=== PATIENT | male | born 1935 | race Caucasian/White ===

== ENCOUNTER 2017-05-28 10:44 | Inpatient (IN) | payer MEDICARE ==
[2017-05-28] MEDS ORDERED: Ondansetron HCl/PF 4 MG/2 ML Vial ONE (10:58)
[2017-05-28 11:36] LABS: ALT (SGPT) 23 U/L (8-55); AST (SGOT) 23 U/L (5-34); Alkaline Phosphatase 85 U/L (40-150); Anion Gap 16 mmol/L (10-20); BUN (Urea Nitrogen) 27 mg/dL (8.4-25.7); Bilirubin, Total 1.1 mg/dL (0.2-1.2); CK (CPK) 85 U/L (30-200); Calc. Creatinine Clearance 0 mL/min (70-130); Calcium 11.9 mg/dL (7.8-10.44); Carbon Dioxide 30 mmol/L (23-31); Chloride 99 mmol/L (98-107); Estimated GFR-MDRD 46; Globulin 3.4 g/dL (2.4-3.5); Lipase 28 U/L (8-78); Protein, Total 8.3 g/dL (5.8-8.1)
[2017-05-28 11:40] LABS: Troponin I 0.011 ng/mL (< 0.028)
[2017-05-28 11:42] LABS: #Lymphocytes 0.8 thou/uL (1.20-3.40); #Monocytes 0.8 thou/uL (0.11-0.59); #Neutrophils 8.8 thou/uL (1.40-6.50); %Basophils 0.1 % (0.0-1.0); %Eosinophils 0.4 % (0.0-10.0); %Lymphocytes 7.4 % (21.0-51.0); %Monocytes 7.2 % (0.0-10.0); Mean Platelet Volume 6.9 fL (7.4-10.4); Red Blood Cell (RBC) Count 5.92 mill/uL (4.70-6.10); White Blood Cell (WBC) Count 10.4 thou/uL (4.8-10.8)
[2017-05-28 12:02] LABS: Lactic Acid - Sepsis 1.7 mmol/L (0.5-2.2)
[2017-05-28 12:06] LABS: Bilirubin Small (Negative); Blood, Urine Negative (Negative); Glucose, Urine (Dipstick) Negative (Negative); Ketone, Urine Trace mg/dL (Negative); Nitrite Negative (Negative); Protein, Urine (Dipstick) 100 mg/dL (Neg-Trace); Urobilinogen 0.2 mg/dL (0.2-1.0)
[2017-05-28 12:07] LABS: Bacteria/HPF None Seen HPF (None Seen)
[2017-05-28 12:21] LABS: Hyaline Casts/LPF 7-10 HYALINE CAST LPF (0-3 Hyaline); RBC/HPF None Seen HPF (0-3)
[2017-05-28] MEDS ORDERED: Lidocaine Viscous Sol 2% 15 ml UD Cup ONE (13:43)
[2017-05-28] MEDS ORDERED: Benzocaine 20% Spray 60 ML CAN ONE (13:43)
--- NOTE | 2017-05-28 14:47 | RAD ---
CHEST 1 VIEW: Date: 05/28/17 HISTORY: Emergency exam. Vomiting. Chest pain. COMPARISON: None. FINDINGS: Lung bases are clear. No pneumothorax or effusion. Cardiac silhouette and mediastinal contours are w ithin normal limits. IMPRESSION: No acute cardiopulmonary process. POS: [facility]
--- NOTE | 2017-05-28 14:50 | RAD ---
ABDOMEN 1 VIEW: Date: 05/28/17 HISTORY: Emergency exam. COMPARISON: CT abdomen and pelvis dated 05/28/17. FINDINGS: Enteric tube is in place, tip at gastric body. Lung bases are clear. There are mildly distended loops of bowel in the abdomen, predominantly small bowel. There is contra st within the renal collecting systems. IMPRESSION: 1. Enteric tube tip gastric body with side port below GE junction. 2. Distended loops of bowel suggestive of obstruction. POS: [facility]
--- NOTE | 2017-05-28 15:20 | CT ---
CT ABDOMEN WITH CONTRAST CT PELVIS WITH CONTRAST: DATE: 05/28/17 TIME: 1259 HOURS HISTORY: 82-year-old male with nausea and emesis, with generalized abdominal pain. TECHNIQUE: IV injection of iodinated contrast media: Isovue. Oral contrast media: Not administered. COMPARISON: None. FINDINGS: There are dilated, fluid-filled small bowel loops throughout most of the intestine. A caliber of a t ypical loop of small intestine is approximately 3.5 cm. There is a segment of ileum in the right low er quadrant that appears to be severely narrowed (axial images 69 and 70 of 119, series 2; coronal i mages 41-46 of 152, series 601) that may represent the point of obstruction, although there is fluid in the small intestine distal to this in the terminal ileum. There is also an ill-defined patchy re gion of increased attenuation, apparently representing enhancement, at the region of the ileocecal v alve. The appendix is normal. There is also fluid throughout the ascending colon, up to the hepatic flexure. There is no fluid in the lumen of the rest of the colon. There is a large number of diverti cula throughout the descending colon and sigmoid colon. There is mild fat stranding around the sigmo id colon (best appreciated on coronal image 65 of 152). There is a small amount of free fluid in the dependent portion of the pelvic cavity. The prostate gl and is very enlarged, and has moderately heterogeneous attenuation, including low attenuation. It busby periorly displaces the bladder base mildly . The urinary bladder is not significantly distended. Ath erosclerotic calcification of abdominal aorta. Chronic, calcified aortic dissection involving the sh ort segment of the infrarenal abdominal aorta (axial image 61 of 119, series 2). No abdominal aortic aneurysm. No hydronephrosis. Small, 1 cm, hypodense lesion at posterior aspect right renal upper po le cortex, too small to characterize, but statistically most likely to be a cyst. A few small hypode nsities in the order of 1 and 1.5 cm in size, in the caudate lobe and deep, central portions of left lobe of liver, too small to characterize, may represent cysts. Rest of the liver is unremarkable. N o splenomegaly. Normal pancreas and adrenals. Tiny pericardial effusion. No pneumoperitoneum. IMPRESSION: 1. Evidence for small bowel obstruction, probably partial or early, involving the distal ileum. 2. A short distance distal to this point of obstruction, there is a region of enhancement at the il eocecal valve, which may or may not represent a second point of partial obstruction by neoplastic tu mor. 3. Extensive descending and sigmoid colonic diverticulosis. 4. Questionable mild proximal sigmoid colonic diverticulitis. 5. Very enlarged prostate gland. 6. Small amount of free fluid in the pelvis. BARBARA POS: [facility]
--- NOTE | 2017-05-28 16:20 | HP ---
PRIMARY CARE PHYSICIAN: Dr. Prashant Maria. REASON FOR ADMISSION: Small-bowel obstruction. HISTORY OF PRESENT ILLNESS: An 82-year-old male with a history of benign enlargement of prostate, h ypothyroidism, dyslipidemia, and gastroesophageal reflux disease who came to Emergency Room for eval uation of nausea, vomiting, abdominal pain. Patient reports that on afternoon, he went to [employer] and ate lunch there. He was doing g ood in the evening time and during night time on that day, but Tuesday morning he was feeling bloated in his stomach. He was feeling abdominal distention. He was having a lot of abdominal pain and he had large amount of vomiting yesterday which was brown bile without any blood. After vomiting, his abdominal pain was better and his distention improved. He also had 5 times liquidy diarrhea withou t any pus or blood. On Tuesday entire day, he was not feeling good and this morning he was not passi ng gas and he was still having crampy abdominal pain and that is why he decided to come to the emerg ency room for evaluation. He denies any hematochezia. He denies any melena. He denies any fever o r chills. He denies any UTI symptoms, though he has history of benign enlargement. So he has to wa ke up more frequently during night time, but he denies any dysuria, hematuria. He denies any furthe r vomiting today. In the emergency room, patient had CT of the abdomen and pelvis which showed evid ence of partial small-bowel obstruction. The patient also had diverticulosis. In the emergency [facility], Dr. Fenton was notified and patient required NG tube with low intermittent suction. At this point , we are admitting this patient in the hospital for further evaluation and treatment. This patient reports that he has history of hernia repair in the past. He never had this type of problem in the past. REVIEW OF SYSTEMS: The following complete review of systems was negative, unless otherwise mentione d in the HPI or below: Constitutional: Weight loss or gain, ability to conduct usual activities. Skin: Rash, itching. Eyes: Double vision, pain. ENT/Mouth: Nose bleeding, neck stiffness, pain, tenderness. Cardiovascular: Palpitations, dyspnea on exertion, orthopnea. Respiratory: Shortness of breath, wheezing, cough, hemoptysis, fever or night sweats. Gastrointestinal: Poor appetite, abdominal pain, heartburn, nausea, vomiting, constipation, or diar crystal. Genitourinary: Urgency, frequency, dysuria, nocturia. Musculoskeletal: Pain, swelling. Neurologic/Psychiatric: Anxiety, depression. Allergy/Immunologic: Skin rash, bleeding tendency. Please see my HPI for pertinent positive and negative. All other review of systems reviewed and neg ative except as mentioned in the HPI. PAST MEDICAL HISTORY: Benign enlargement of prostate, hypothyroidism, hiatal hernia, history of div erticulitis x2, and dyslipidemia. PAST SURGICAL HISTORY: Bilateral inguinal hernia repair by Dr. Fenton and bilateral cataract surgery . PAST PSYCHIATRIC HISTORY: Reviewed and negative. SOCIAL HISTORY: Patient drinks beer socially. He denies any smoking. He denies any illicit drug a buse. FAMILY HISTORY: No strong family history of premature coronary artery disease, stroke or cancer. ALLERGIES: No known drug allergies. CURRENT HOME MEDICATIONS: Zocor 40 mg p.o. at bedtime, omeprazole 20 mg p.o. daily, levothyroxine 7 5 mcg p.o. daily, and Flomax 0.4 mg p.o. daily. EMERGENCY ROOM COURSE: Patient required NG tube with low intermittent suction, Zofran 4 mg, and IV fluid is given. PHYSICAL EXAMINATION: VITAL SIGNS: On arrival, blood pressure 134/79, pulse 101, respiratory rate 16, temperature 97.4, s aturation 94% on room air, weight 83.4 kilograms. GENERAL: Patient is currently alert, awake, no obvious acute distress. HEAD: Normocephalic, atraumatic. EYES: Pupils round, reactive to light. Extraocular muscles intact. ENT: Oropharynx within normal limits. NG tube in place. Dry mucous membranes. No pharyngeal eryt eric, no exudate. NECK: Supple. Range of motion is normal. No meningeal signs of irritation. LUNGS: Clear to auscultation without any rhonchi or rales. CARDIAC: S1, S2 regular. No murmur, no gallop, no rub. ABDOMEN: Mild distention noted. Unable to hear bowel sounds, mild discomfort on deep palpation, bu t no organomegaly, no mass, no peritoneal signs, no rebound, no suprapubic discomfort. BACK: Examination unremarkable, no CVA tenderness. EXTREMITIES: Upper extremity passive movements of all joints are normal. Lower extremity, no edema . Good peripheral pulsation. SKIN: No skin rash. HEMATOLOGICAL SYSTEM: No lymphadenopathy. PSYCHIATRIC: Normal affect. NEUROLOGIC: Nonfocal examination. The patient moves all 4 limbs. Plantar bilateral flexor. IMAGING: EKG based on my review reveals normal sinus rhythm, nonspecific ST-T changes. Chest x-ray based on my review, no acute cardiopulmonary process. X-ray abdomen and trach tube within the lj fabiola body distended loops of bowel consistent with obstruction. CT of the abdomen and pelvis consist ent with small-bowel obstruction, short distal to the point of obstruction, extensive descending and sigmoid colonic diverticulosis, enlarged prostate, small amount of free fluid in the pelvis. ASSESSMENT AND PLAN/IMPRESSION: 1. Partial small-bowel obstruction. This patient had large amount of vomiting. After that, he is feeling better. At this point, I am not able to hear any bowel sound. This patient already had NG tube placed in the emergency room. We will continue with low intermittent suction. Will keep him n .p.o. We will hydrate with IV fluids with dextrose with NS with KCl at 125 mL per hour. Will also consult General Surgery for their opinion. At this point, we will try to treat this problem conserv atively with NG tube and low intermittent suction. If this patient's obstruction does not improve, then patient may need a surgical treatment. We will try to perform small bowel x-ray tomorrow. Ano ther possibility on this particular patient is small bowel ileus. 2. Gastroenteritis/food poisoning. This patient ate at [employer] on and subsequently he wa s having bloating, nausea, vomiting, and diarrhea, and current episode could be a part of ileus. At this point, if patient does have further diarrhea, then we will try to do stool for infection kath p, given no leukocytosis at this point and no fever, we will hold on antibiotic therapy. 3. Acute kidney injury. This patient is dehydrated. We will continue with IV fluid and will repea t basic metabolic panel tomorrow. 4. Asymptomatic urinary tract infection. We will send urine culture and depending upon culture res ult, we will start Cipro 400 mg IV b.i.d. 5. Benign enlargement of prostate. We will continue with the Flomax 0.4 mg p.o. at bedtime when pa tessant able to take p.o. 6. Gastroesophageal reflux disease. We will continue with Protonix 40 mg IV daily. 7. Hypothyroidism. When patient able to take p.o., at that time we will resume Synthroid 75 mcg p. o. daily. 8. Dyslipidemia. When patient able to take p.o. intake, at that time we will resume Zocor 40 mg p. o. at bedtime. 9. Deep venous thrombosis prophylaxis, Lovenox 40 mg subcu daily. 10. Gastrointestinal prophylaxis, Protonix 40 mg IV daily. 11. Code status: The patient is FULL CODE. Patient's daughter is surrogate decision maker. Disposition plan based on clinical course. We are expecting patient's stay in hospital more than 2 midnights. Plan of care discussed with the patient and family member in the emergency room.
[2017-05-28] MEDS ORDERED: ISOVUE-370 76%-LOCM 1 ML ONE (16:48)
[2017-05-28] MEDS ORDERED: Ondansetron HCl/PF 4 MG/2 ML Vial IVP PRN ×2 (17:02→17:32)
[2017-05-28] MEDS ORDERED: Ondansetron ODT 4 MG TAB SL PRN (17:02)
[2017-05-28] MEDS ORDERED: Acetaminophen 325 MG TAB PO PRN (17:02)
[2017-05-28] MEDS ORDERED: Artificial Tear Sol 15 ML BOT EA EYE PRN (17:32)
[2017-05-28] MEDS ORDERED: Eucerin (Mineral Oil/Petrolatum,White) 30 gm Jar TOP PRN (17:32)
[2017-05-28] MEDS ORDERED: Ketorolac Tromethamine 30 MG/ML VIAL IVP PRN (17:32)
[2017-05-28] MEDS ORDERED: Sodium Chloride 0.65% Nasal 44 ML BOT EA NARE PRN (17:32)
[2017-05-28 17:35] VITALS: BMI 24.3
[2017-05-28] MEDS: D5 0.9% NS w/ 20 mEq KCl 1,000 ML IV SCH (18:09)
[2017-05-28] MEDS: Sodium Chloride 0.9% 1,000 ML IV SCH ×2 (18:16→23:51)
[2017-05-29] MEDS: D5 0.9% NS w/ 20 mEq KCl 1,000 ML IV SCH ×3 (02:37→17:24)
[2017-05-29 05:52] LABS: #Eosinphils 0.3 thou/uL (0.0-0.7); #Lymphocytes 0.5 thou/uL (1.20-3.40); #Neutrophils 5.9 thou/uL (1.40-6.50); %Basophils 0.5 % (0.0-1.0); %Eosinophils 3.4 % (0.0-10.0); %Monocytes 13.2 % (0.0-10.0); Hematocrit 51.4 % (42.0-52.0); Red Blood Cell (RBC) Count 5.39 mill/uL (4.70-6.10); White Blood Cell (WBC) Count 7.8 thou/uL (4.8-10.8)
[2017-05-29 06:18] LABS: ALT (SGPT) 19 U/L (8-55); AST (SGOT) 20 U/L (5-34); Alkaline Phosphatase 70 U/L (40-150); Anion Gap 9 mmol/L (10-20); BUN (Urea Nitrogen) 28 mg/dL (8.4-25.7); Bilirubin, Total 1.1 mg/dL (0.2-1.2); Calc. Creatinine Clearance 66 mL/min (70-130); Calcium 9.9 mg/dL (7.8-10.44); Carbon Dioxide 27 mmol/L (23-31); Chloride 108 mmol/L (98-107); Estimated GFR-MDRD 69; Globulin 2.8 g/dL (2.4-3.5)
[2017-05-29] MEDS: Pantoprazole 40 MG VIAL IVP SCH (09:21)
[2017-05-29] MEDS: Enoxaparin Sodium 40 MG/0.4 ML SYRINGE SC SCH (09:21)
[2017-05-29] MEDS ORDERED: Chloraseptic Spray 180 ml Bottle PO PRN ×2 (10:22→11:06)
[2017-05-29] MEDS ORDERED: Sodium Chloride 0.9% 1,000 ML IV SCH (10:30)
--- NOTE | 2017-05-29 10:41 | PDOC.PN ---
- Subjective Encounter Start Date: 05/29/17 Encounter Start Time: 08:30 -: old records requested/rev pt is not passing gas, no fever, no abdominal pain - Objective Resuscitation Status: Resuscitation Status FULL:Full Resuscitation MAR Reviewed: Yes Vital Signs & Weight: Vital Signs (12 hours) Temp Pulse Resp BP Pulse Ox 05/29/17 08:59 94 L 05/29/17 04:00 97.8 F 75 16 134/82 98 05/29/17 00:00 98 F 81 16 132/78 95 Weight Weight 184 lb 1.376 oz I&O: 05/28/17 05/29/17 05/30/17 06:59 06:59 06:59 Output Total 325 Balance -325 Result Diagrams: 05/29/17 05:04 05/29/17 05:04 Radiology Reviewed by me: Yes (xray abdomen) Phys Exam - Physical Examination Constitutional: NAD HEENT: PERRLA, moist MMs, sclera anicteric NG tube with LIS Neck: no JVD, supple Respiratory: no wheezing, no rales, no rhonchi Cardiovascular: RRR, no significant murmur, no rub Gastrointestinal: soft, non-tender, no distention Musculoskeletal: no edema, pulses present Neurological: non-focal, normal sensation, moves all 4 limbs Psychiatric: normal affect, A&O x 3 Skin: no rash, normal turgor Dx/Plan (1) Partial small bowel obstruction Status: Acute (2) UTI (urinary tract infection) Status: Acute (3) Diverticulosis of colon Code(s): K57.30 - DVRTCLOS OF LG INT W/O PERFORATION OR ABSCESS W/O BLEEDING Status: Chronic (4) Diverticulitis large intestine Code(s): K57.32 - DVTRCLI OF LG INT W/O PERFORATION OR ABSCESS W/O BLEEDING Status: Suspected Qualifiers: Diverticulitis bleeding: without bleeding Diverticulitis complication: without perforation or abscess Qualified Code(s): K57.32 - Diverticulitis of large intestine without perforation or abscess without bleeding (5) Acute kidney failure Status: Resolved (6) BPH (benign prostatic hyperplasia) Code(s): N40.0 - BENIGN PROSTATIC HYPERPLASIA WITHOUT LOWER URINRY TRACT SYMP Status: Chronic (7) Hypothyroidism Code(s): E03.9 - HYPOTHYROIDISM, UNSPECIFIED Status: Chronic (8) Dyslipidemia Code(s): E78.5 - HYPERLIPIDEMIA, UNSPECIFIED Status: Chronic (9) GERD (gastroesophageal reflux disease) Code(s): K21.9 - GASTRO-ESOPHAGEAL REFLUX DISEASE WITHOUT ESOPHAGITIS Status: Chronic Qualifiers: Esophagitis presence: without esophagitis Qualified Code(s): K21.9 - Gastro -esophageal reflux disease without esophagitis - Plan cont current plan of care, plan discussed w/ family, continue antibiotics * continue NG tube with LIS * general surgery consulted * will do small bowel xray when surgeon ok * continue IVF * continue cipro * follow urine culture * medication reviewed as below * symptomatic treatment * discussed with daughter. Review of Systems - Review of Systems ENT: negative: Ear Pain, Ear Discharge, Nose Pain, Nose Discharge, Nose Congestion, Mouth Pain, Mouth Swelling, Throat Pain, Throat Swelling, Other Respiratory: negative: Cough, Dry, Shortness of Breath, Hemoptysis, SOB with Excertion, Pleuritic Pain, Sputum, Wheezing Cardiovascular: negative: Chest Pain, Palpitations, Orthopnea, Paroxysmal Noc. Dyspnea, Edema, Light Headedness, Other Gastrointestinal: negative: Nausea, Vomiting, Abdominal Pain, Diarrhea, Constipation, Melena, Hematochezia, Other Genitourinary: negative: Dysuria, Frequency, Incontinence, Hematuria, Retention , Other Musculoskeletal: negative: Neck Pain, Shoulder Pain, Arm Pain, Back Pain, Hand Pain, Leg Pain, Foot Pain, Other - Medications/Allergies Allergies/Adverse Reactions: Allergies Allergy/AdvReac Type Severity Reaction Status Date / Time No Known Allergies Allergy Unverified 04/22/14 15:45 Medications: Current Medications Artificial Tears (Tears Renewed 15ml Bottle) 0 drop EA EYE PRN PRN PRN Reason: Dry Eyes Enoxaparin Sodium (Lovenox) 40 mg SC 0900 [facility] Last Admin: 05/29/17 09:21 Dose: 40 mg Hydralazine HCl (Apresoline) 10 mg SLOW IVP Q4H PRN PRN Reason: Systolic BP > 180 Ciprofloxacin/Dextrose 400 mg/ (Device) 200 mls @ 200 mls/hr IVPB 0600,1800 [facility] Last Admin: 05/29/17 05:19 Dose: 200 mls Potassium Chloride/Dextrose/Sod Cl (D5 0.9% Ns W/ 20 Meq Kcl) 1,000 mls @ 125 mls/hr IV .Q8H [facility] Last Admin: 10/01/17 09:32 Dose: 1,000 mls Sodium Chloride (Normal Saline 0.9%) 1,000 mls @ 999 mls/hr IV .Q1H1M [facility] Stop: 05/29/17 11:30 Ketorolac Tromethamine (Toradol) 15 mg IVP Q6H PRN PRN Reason: Pain Stop: 06/02/17 17:33 Mineral Oil/White Petrolatum (Eucerin Cream) 0 gm TOP BIDPRN PRN PRN Reason: Dry Skin Morphine Sulfate (Morphine Sulfate) 2 mg SLOW IVP Q4H PRN PRN Reason: Pain Ondansetron HCl (Zofran) 4 mg IVP Q6H PRN PRN Reason: Nausea/Vomiting Pantoprazole Sodium (Protonix) 40 mg IVP DAILY [facility] Last Admin: 05/29/17 09:21 Dose: 40 mg Phenol (Chloraseptic [place] 180 Ml Bot) 5 ml PO QID PRN PRN Reason: Sore Throat Sodium Chloride ([place] Nasal [place] 0.65%) 0 ml EA NARE QIDPRN PRN PRN Reason: Nasal Congestion Sodium Chloride (Flush - Normal Saline) 10 ml IVF Q12HR [facility] Sodium Chloride (Flush - Normal Saline) 10 ml IVF PRN PRN PRN Reason: Saline Flush
--- NOTE | 2017-05-29 10:41 | CON ---
GENERAL SURGERY CONSULTATION NOTE DATE OF CONSULTATION: 05/29/2017 CHIEF COMPLAINT: Abdominal distention. HISTORY OF PRESENT ILLNESS: An 82-year-old male with a 2-day history of feeling like he had the flu . He then started having nausea, vomiting and diarrhea. He was vomiting brown bile. His last dez l movement was yesterday. He reports his abdomen is becoming progressively more distended. He had a colonoscopy about 3-[address] Finch. He does have a family history of colon cancer in h is brother. PAST MEDICAL HISTORY: Benign prostatic hypertrophy, hypothyroidism, hiatal hernia, hyperlipidemia a nd history of diverticulitis. He was last treated about 8 months ago. PAST SURGICAL HISTORY: He has had bilateral inguinal hernia repair and bilateral cataract surgery. ALLERGIES: No known drug allergies. SOCIAL HISTORY: He drinks alcohol regularly. No tobacco. He is retired. MEDICATIONS: Simvastatin, omeprazole, levothyroxine and tamsulosin. PHYSICAL EXAMINATION: VITAL SIGNS: Temperature 98.7, pulse 75 and blood pressure 134/82. GENERAL: A well-developed, well-nourished male in no apparent distress. HEENT: Unremarkable. LUNGS: Clear. HEART: Regular rate and rhythm. ABDOMEN: Distended, but soft. No significant tenderness. No palpable masses. No hernias. EXTREMITIES: Unremarkable. LABORATORY AND X-RAY FINDINGS: His white count is 7.8, hemoglobin and hematocrit 16 and 51, platele t count 271. Electrolytes are fine, but an elevated glucose of 122. KUB shows distended loops of s mall bowel consistent with obstruction. Chest x-ray negative. CT scan shows inflammation in the si gmoid colon consistent with diverticulitis. There is a questionable mass in the ileocecal valve eamon t is worrisome with a possible secondary site for obstruction and also an area of luminal narrowing in the terminal ileum consistent with a possible early obstruction. ASSESSMENT: Partial small-bowel obstruction with diverticulitis and questionable mass at the ileoce chayo valve. PLAN: IV hydration and NG suction. If not better by tomorrow, small bowel follow through.
--- NOTE | 2017-05-29 11:28 | RAD ---
RADIOGRAPH ABDOMEN 1 VIEW: Date: 05/29/17 Time: 0940 hours HISTORY: 82-year-old male with small bowel obstruction. COMPARISON: 05/28/17 at 1335 hours. FINDINGS: The current radiograph is centered more inferiorly than the previous. NG tube remains. Multiple dila bassam air-filled loops of small bowel are present. Smaller amount of gas in nondilated colon. Prominen t gas in rectum. The previously air-filled stomach is now decompressed. No other interval change. IMPRESSION: 1. Abnormal bowel gas pattern: evidence for partial small bowel obstruction. 2. Interval decompression of the stomach since yesterday. POS: [facility]
[2017-05-30] MEDS: D5 0.9% NS w/ 20 mEq KCl 1,000 ML IV SCH ×3 (02:41→19:27)
[2017-05-30] MEDS: Enoxaparin Sodium 40 MG/0.4 ML SYRINGE SC SCH (08:38)
[2017-05-30] MEDS: Pantoprazole 40 MG VIAL IVP SCH (08:38)
--- NOTE | 2017-05-30 09:49 | RAD ---
AP ABDOMINAL RADIOGRAPH: Date: 05/30/17 HISTORY: Small bowel obstruction. COMPARISON: 05/29/17. FINDINGS: Again noted are multiple dilated air-filled loops of small bowel, unchanged from the prior study. Th ere is paucity of bowel gas in the region of the rectum. However, there is gas seen throughout the r emainder of the colon. Nasogastric tube is partially imaged overlying the medial left upper quadrant . No other interval change. IMPRESSION: Findings again worrisome for partial small bowel obstruction. POS: [facility]
--- NOTE | 2017-05-30 12:18 | PDOC.PN ---
- Subjective Encounter Start Date: 05/30/17 Encounter Start Time: 11:00 Patient seen and examined. No new complaints. No overnight events - Objective Resuscitation Status: Resuscitation Status FULL:Full Resuscitation MAR Reviewed: Yes Vital Signs & Weight: Vital Signs (12 hours) Temp Pulse Resp BP Pulse Ox 05/30/17 08:00 97.8 F 62 12 147/84 H 92 L 05/30/17 05:01 98.8 F 97 16 110/63 97 Weight Weight 184 lb 1.376 oz I&O: 05/29/17 05/30/17 05/31/17 06:59 06:59 06:59 Intake Total 2820 Output Total 325 375 Balance -325 2445 Result Diagrams: 05/29/17 05:04 05/29/17 05:04 Phys Exam - Physical Examination Constitutional: NAD HEENT: PERRLA, moist MMs, sclera anicteric NG tube with LIS Neck: no JVD, supple Respiratory: no wheezing, no rales, no rhonchi Cardiovascular: RRR, no significant murmur, no rub Gastrointestinal: soft, non-tender, no distention Musculoskeletal: no edema, pulses present Neurological: non-focal, normal sensation, moves all 4 limbs Psychiatric: normal affect, A&O x 3 Skin: no rash, normal turgor Dx/Plan (1) Partial small bowel obstruction Status: Acute (2) UTI (urinary tract infection) Status: Acute (3) Diverticulosis of colon Code(s): K57.30 - DVRTCLOS OF LG INT W/O PERFORATION OR ABSCESS W/O BLEEDING Status: Chronic (4) Diverticulitis large intestine Code(s): K57.32 - DVTRCLI OF LG INT W/O PERFORATION OR ABSCESS W/O BLEEDING Status: Suspected Qualifiers: Diverticulitis bleeding: without bleeding Diverticulitis complication: without perforation or abscess Qualified Code(s): K57.32 - Diverticulitis of large intestine without perforation or abscess without bleeding (5) Acute kidney failure Status: Resolved (6) BPH (benign prostatic hyperplasia) Code(s): N40.0 - BENIGN PROSTATIC HYPERPLASIA WITHOUT LOWER URINRY TRACT SYMP Status: Chronic (7) Hypothyroidism Code(s): E03.9 - HYPOTHYROIDISM, UNSPECIFIED Status: Chronic (8) Dyslipidemia Code(s): E78.5 - HYPERLIPIDEMIA, UNSPECIFIED Status: Chronic (9) GERD (gastroesophageal reflux disease) Code(s): K21.9 - GASTRO-ESOPHAGEAL REFLUX DISEASE WITHOUT ESOPHAGITIS Status: Chronic Qualifiers: Esophagitis presence: without esophagitis Qualified Code(s): K21.9 - Gastro -esophageal reflux disease without esophagitis - Plan cont current plan of care, plan discussed w/ family, continue antibiotics * will get small bowl xray today * continue NPO * continue NG tube with LIS * continue cipro * continue IVF * medication reviewed as below * symptomatic treatment.. Review of Systems - Review of Systems ENT: negative: Ear Pain, Ear Discharge, Nose Pain, Nose Discharge, Nose Congestion, Mouth Pain, Mouth Swelling, Throat Pain, Throat Swelling, Other Respiratory: negative: Cough, Dry, Shortness of Breath, Hemoptysis, SOB with Excertion, Pleuritic Pain, Sputum, Wheezing Cardiovascular: negative: Chest Pain, Palpitations, Orthopnea, Paroxysmal Noc. Dyspnea, Edema, Light Headedness, Other Gastrointestinal: negative: Nausea, Vomiting, Abdominal Pain, Diarrhea, Constipation, Melena, Hematochezia, Other Genitourinary: negative: Dysuria, Frequency, Incontinence, Hematuria, Retention , Other Musculoskeletal: negative: Neck Pain, Shoulder Pain, Arm Pain, Back Pain, Hand Pain, Leg Pain, Foot Pain, Other - Medications/Allergies Allergies/Adverse Reactions: Allergies Allergy/AdvReac Type Severity Reaction Status Date / Time No Known Allergies Allergy Unverified 04/22/14 15:45 Medications: Current Medications Artificial Tears (Tears Renewed 15ml Bottle) 0 drop EA EYE PRN PRN PRN Reason: Dry Eyes Enoxaparin Sodium (Lovenox) 40 mg SC 0900 [facility] Last Admin: 05/30/17 08:38 Dose: 40 mg Hydralazine HCl (Apresoline) 10 mg SLOW IVP Q4H PRN PRN Reason: Systolic BP > 180 Ciprofloxacin/Dextrose 400 mg/ (Device) 200 mls @ 200 mls/hr IVPB 0600,1800 [facility] Last Admin: 05/30/17 05:24 Dose: 200 mls Potassium Chloride/Dextrose/Sod Cl (D5 0.9% Ns W/ 20 Meq Kcl) 1,000 mls @ 125 mls/hr IV .Q8H [facility] Last Admin: 05/30/17 05:24 Dose: 1,000 mls Ketorolac Tromethamine (Toradol) 15 mg IVP Q6H PRN PRN Reason: Pain Stop: 06/02/17 17:33 Mineral Oil/White Petrolatum (Eucerin Cream) 0 gm TOP BIDPRN PRN PRN Reason: Dry Skin Morphine Sulfate (Morphine Sulfate) 2 mg SLOW IVP Q4H PRN PRN Reason: Pain Ondansetron HCl (Zofran) 4 mg IVP Q6H PRN PRN Reason: Nausea/Vomiting Pantoprazole Sodium (Protonix) 40 mg IVP DAILY [facility] Last Admin: 05/30/17 08:38 Dose: 40 mg Phenol (Chloraseptic [place] 180 Ml Bot) 5 ml PO QID PRN PRN Reason: Sore Throat Phenol (Chloraseptic [place] 180 Ml Bot) 0 ml PO PRN PRN PRN Reason: Sore Throat Last Admin: 05/29/17 11:56 Dose: 1 applic Sodium Chloride ([place] Nasal [place] 0.65%) 0 ml EA NARE QIDPRN PRN PRN Reason: Nasal Congestion Sodium Chloride (Flush - Normal Saline) 10 ml IVF Q12HR [facility] Last Admin: 05/30/17 08:52 Dose: 10 ml Sodium Chloride (Flush - Normal Saline) 10 ml IVF PRN PRN PRN Reason: Saline Flush
--- NOTE | 2017-05-30 17:55 | RAD ---
SMALL BOWEL FOLLOW THROUGH: History: Abdominal pain. Partial small bowel obstruction. FINDINGS: [employer] KUB shows mildly distended gas filled loops of small bowel. Gastrografin contrast administered through the NG tube shows a decompressed duodenum. Jejunal loops measure up to 5 cm transverse diam eter. At 3 hours, contrast material is present within the right colon and left colon. IMPRESSION: 1. Mild distention of the jejunum suggests partial ongoing obstruction, contrast easily reaches the colon at 3 hours, proving the absence of a complete or high grade obstruction. POS: SHILPI
[2017-05-30] MEDS ORDERED: FLU VACC TS2017-18 (>65YR) 0.5 ML SYRINGE IM ONE (21:00)
[2017-05-31] MEDS: D5 0.9% NS w/ 20 mEq KCl 1,000 ML IV SCH ×2 (06:25→19:35)
[2017-05-31] MEDS: Enoxaparin Sodium 40 MG/0.4 ML SYRINGE SC SCH (09:25)
[2017-05-31] MEDS: Pantoprazole 40 MG VIAL IVP SCH (09:25)
--- NOTE | 2017-05-31 10:25 | PDOC.PN ---
- Subjective Encounter Start Date: 05/31/17 Encounter Start Time: 10:20 Patient seen and examined. No new complaints. No overnight events - Objective Resuscitation Status: Resuscitation Status FULL:Full Resuscitation MAR Reviewed: Yes Vital Signs & Weight: Vital Signs (12 hours) Temp Pulse Resp BP Pulse Ox 05/31/17 09:12 97.9 F 60 20 155/77 H 96 05/31/17 03:53 98.2 F 60 14 135/77 95 05/31/17 00:11 97.4 F L 66 20 129/76 97 Weight Weight 184 lb 1.376 oz I&O: 05/30/17 05/31/17 06/01/17 06:59 06:59 06:59 Intake Total 2820 1375 Output Total 375 Balance 2445 1375 Result Diagrams: 05/29/17 05:04 05/29/17 05:04 Phys Exam - Physical Examination Constitutional: NAD HEENT: PERRLA, moist MMs, sclera anicteric Neck: no JVD, supple Respiratory: no wheezing, no rales, no rhonchi Cardiovascular: RRR, no significant murmur, no rub Gastrointestinal: soft, non-tender, no distention, positive bowel sounds Musculoskeletal: no edema, pulses present Neurological: non-focal, normal sensation, moves all 4 limbs Psychiatric: normal affect, A&O x 3 Skin: no rash, normal turgor Dx/Plan (1) Partial small bowel obstruction Status: Acute (2) UTI (urinary tract infection) Status: Acute (3) Diverticulosis of colon Code(s): K57.30 - DVRTCLOS OF LG INT W/O PERFORATION OR ABSCESS W/O BLEEDING Status: Chronic (4) Diverticulitis large intestine Code(s): K57.32 - DVTRCLI OF LG INT W/O PERFORATION OR ABSCESS W/O BLEEDING Status: Suspected Qualifiers: Diverticulitis bleeding: without bleeding Diverticulitis complication: without perforation or abscess Qualified Code(s): K57.32 - Diverticulitis of large intestine without perforation or abscess without bleeding (5) Acute kidney failure Status: Resolved (6) BPH (benign prostatic hyperplasia) Code(s): N40.0 - BENIGN PROSTATIC HYPERPLASIA WITHOUT LOWER URINRY TRACT SYMP Status: Chronic (7) Hypothyroidism Code(s): E03.9 - HYPOTHYROIDISM, UNSPECIFIED Status: Chronic (8) Dyslipidemia Code(s): E78.5 - HYPERLIPIDEMIA, UNSPECIFIED Status: Chronic (9) GERD (gastroesophageal reflux disease) Code(s): K21.9 - GASTRO-ESOPHAGEAL REFLUX DISEASE WITHOUT ESOPHAGITIS Status: Chronic Qualifiers: Esophagitis presence: without esophagitis Qualified Code(s): K21.9 - Gastro -esophageal reflux disease without esophagitis - Plan cont current plan of care, plan discussed w/ family, continue antibiotics * DC IVF * start clear liquid diet and advance as tolerated * medication reviewed as below. * symptomatic treatment * will need GI follow up after discharge * start selected home meds. Review of Systems - Review of Systems ENT: negative: Ear Pain, Ear Discharge, Nose Pain, Nose Discharge, Nose Congestion, Mouth Pain, Mouth Swelling, Throat Pain, Throat Swelling, Other Respiratory: negative: Cough, Dry, Shortness of Breath, Hemoptysis, SOB with Excertion, Pleuritic Pain, Sputum, Wheezing Cardiovascular: negative: Chest Pain, Palpitations, Orthopnea, Paroxysmal Noc. Dyspnea, Edema, Light Headedness, Other Gastrointestinal: negative: Nausea, Vomiting, Abdominal Pain, Diarrhea, Constipation, Melena, Hematochezia, Other Genitourinary: negative: Dysuria, Frequency, Incontinence, Hematuria, Retention , Other Musculoskeletal: negative: Neck Pain, Shoulder Pain, Arm Pain, Back Pain, Hand Pain, Leg Pain, Foot Pain, Other - Medications/Allergies Allergies/Adverse Reactions: Allergies Allergy/AdvReac Type Severity Reaction Status Date / Time No Known Allergies Allergy Unverified 04/22/14 15:45 Medications: Current Medications Artificial Tears (Tears Renewed 15ml Bottle) 0 drop EA EYE PRN PRN PRN Reason: Dry Eyes Enoxaparin Sodium (Lovenox) 40 mg SC 0900 [facility] Last Admin: 05/31/17 09:25 Dose: 40 mg Hydralazine HCl (Apresoline) 10 mg SLOW IVP Q4H PRN PRN Reason: Systolic BP > 180 Ciprofloxacin/Dextrose 400 mg/ (Device) 200 mls @ 200 mls/hr IVPB 0600,1800 [facility] Last Admin: 05/31/17 06:25 Dose: 200 mls Potassium Chloride/Dextrose/Sod Cl (D5 0.9% Ns W/ 20 Meq Kcl) 1,000 mls @ 125 mls/hr IV .Q8H [facility] Last Admin: 05/31/17 06:25 Dose: 1,000 mls Ketorolac Tromethamine (Toradol) 15 mg IVP Q6H PRN PRN Reason: Pain Stop: 06/02/17 17:33 Mineral Oil/White Petrolatum (Eucerin Cream) 0 gm TOP BIDPRN PRN PRN Reason: Dry Skin Morphine Sulfate (Morphine Sulfate) 2 mg SLOW IVP Q4H PRN PRN Reason: Pain Ondansetron HCl (Zofran) 4 mg IVP Q6H PRN PRN Reason: Nausea/Vomiting Pantoprazole Sodium (Protonix) 40 mg IVP DAILY [facility] Last Admin: 05/31/17 09:25 Dose: 40 mg Phenol (Chloraseptic [place] 180 Ml Bot) 5 ml PO QID PRN PRN Reason: Sore Throat Phenol (Chloraseptic [place] 180 Ml Bot) 0 ml PO PRN PRN PRN Reason: Sore Throat Last Admin: 05/29/17 11:56 Dose: 1 applic Sodium Chloride ([place] Nasal [place] 0.65%) 0 ml EA NARE QIDPRN PRN PRN Reason: Nasal Congestion Sodium Chloride (Flush - Normal Saline) 10 ml IVF Q12HR [facility] Last Admin: 05/31/17 09:30 Dose: 10 ml Sodium Chloride (Flush - Normal Saline) 10 ml IVF PRN PRN PRN Reason: Saline Flush
[2017-05-31] MEDS: Cipro 250 MG TAB PO SCH (20:41)
[2017-05-31] MEDS ORDERED: Simvastatin 40 MG TAB PO SCH (21:00)
[2017-06-01] MEDS ORDERED: Levothyroxine Sodium 75 MCG TAB PO SCH (06:00)
[2017-06-01] MEDS: Cipro 250 MG TAB PO SCH (06:05)
[2017-06-01] MEDS: Enoxaparin Sodium 40 MG/0.4 ML SYRINGE SC SCH (08:17)
[2017-06-01] MEDS ORDERED: Tamsulosin HCl 0.4 MG CAP PO SCH (09:00)
--- NOTE | 2017-06-01 10:08 | PDOC.PN ---
- Subjective Encounter Start Date: 06/01/17 Encounter Start Time: 08:20 pt was feeling bloated after diet and he feels fullness on right LQ, he had liquid BM last night - Objective Resuscitation Status: Resuscitation Status FULL:Full Resuscitation MAR Reviewed: Yes Vital Signs & Weight: Vital Signs (12 hours) Temp Pulse Resp BP Pulse Ox 06/01/17 08:10 97.9 F 79 14 139/66 94 L 06/01/17 04:00 97.6 F 57 L 16 121/82 95 06/01/17 00:00 97.9 F 60 16 135/81 97 Weight Weight 184 lb 1.376 oz I&O: 05/31/17 06/01/17 06/02/17 06:59 06:59 06:59 Intake Total 1375 400 Balance 1375 400 Result Diagrams: 05/29/17 05:04 05/29/17 05:04 Phys Exam - Physical Examination Constitutional: NAD HEENT: PERRLA, moist MMs, sclera anicteric Neck: no JVD, supple Respiratory: no wheezing, no rales, no rhonchi Cardiovascular: RRR, no significant murmur, no rub Gastrointestinal: soft, non-tender, no distention, positive bowel sounds Musculoskeletal: no edema, pulses present Neurological: non-focal, normal sensation, moves all 4 limbs Psychiatric: normal affect, A&O x 3 Skin: no rash, normal turgor Dx/Plan (1) Partial small bowel obstruction Status: Acute (2) UTI (urinary tract infection) Status: Acute (3) Diverticulosis of colon Code(s): K57.30 - DVRTCLOS OF LG INT W/O PERFORATION OR ABSCESS W/O BLEEDING Status: Chronic (4) Diverticulitis large intestine Code(s): K57.32 - DVTRCLI OF LG INT W/O PERFORATION OR ABSCESS W/O BLEEDING Status: Suspected Qualifiers: Diverticulitis bleeding: without bleeding Diverticulitis complication: without perforation or abscess Qualified Code(s): K57.32 - Diverticulitis of large intestine without perforation or abscess without bleeding (5) Acute kidney failure Status: Resolved (6) BPH (benign prostatic hyperplasia) Code(s): N40.0 - BENIGN PROSTATIC HYPERPLASIA WITHOUT LOWER URINRY TRACT SYMP Status: Chronic (7) Hypothyroidism Code(s): E03.9 - HYPOTHYROIDISM, UNSPECIFIED Status: Chronic (8) Dyslipidemia Code(s): E78.5 - HYPERLIPIDEMIA, UNSPECIFIED Status: Chronic (9) GERD (gastroesophageal reflux disease) Code(s): K21.9 - GASTRO-ESOPHAGEAL REFLUX DISEASE WITHOUT ESOPHAGITIS Status: Chronic Qualifiers: Esophagitis presence: without esophagitis Qualified Code(s): K21.9 - Gastro -esophageal reflux disease without esophagitis - Plan cont current plan of care, plan discussed w/ family, continue antibiotics * will advance diet today * if he still has bloating later today or pain, then will reorder CT abdomen to see if he has any pathology at right ilieocecal level. * medication reviewed as below * symptomatic treatment * if he is doing well with solid, then possible discharge to home if surgeon ok * pt made appointment with GI on this tuesday Review of Systems - Review of Systems ENT: negative: Ear Pain, Ear Discharge, Nose Pain, Nose Discharge, Nose Congestion, Mouth Pain, Mouth Swelling, Throat Pain, Throat Swelling, Other Respiratory: negative: Cough, Dry, Shortness of Breath, Hemoptysis, SOB with Excertion, Pleuritic Pain, Sputum, Wheezing Cardiovascular: negative: Chest Pain, Palpitations, Orthopnea, Paroxysmal Noc. Dyspnea, Edema, Light Headedness, Other Gastrointestinal: negative: Nausea, Vomiting, Abdominal Pain, Diarrhea, Constipation, Melena, Hematochezia, Other Genitourinary: negative: Dysuria, Frequency, Incontinence, Hematuria, Retention , Other Musculoskeletal: negative: Neck Pain, Shoulder Pain, Arm Pain, Back Pain, Hand Pain, Leg Pain, Foot Pain, Other - Medications/Allergies Allergies/Adverse Reactions: Allergies Allergy/AdvReac Type Severity Reaction Status Date / Time No Known Allergies Allergy Unverified 04/22/14 15:45 Medications: Current Medications Artificial Tears (Tears Renewed 15ml Bottle) 0 drop EA EYE PRN PRN PRN Reason: Dry Eyes Ciprofloxacin (Cipro) 500 mg PO BID@0600,2000 [facility] Last Admin: 06/01/17 06:05 Dose: 500 mg Enoxaparin Sodium (Lovenox) 40 mg SC 0900 [facility] Last Admin: 06/01/17 08:17 Dose: 40 mg Hydralazine HCl (Apresoline) 10 mg SLOW IVP Q4H PRN PRN Reason: Systolic BP > 180 Ketorolac Tromethamine (Toradol) 15 mg IVP Q6H PRN PRN Reason: Pain Stop: 06/02/17 17:33 Levothyroxine Sodium (Synthroid) 75 mcg PO 0600 [facility] Last Admin: 06/01/17 06:06 Dose: 75 mcg Mineral Oil/White Petrolatum (Eucerin Cream) 0 gm TOP BIDPRN PRN PRN Reason: Dry Skin Morphine Sulfate (Morphine Sulfate) 2 mg SLOW IVP Q4H PRN PRN Reason: Pain Ondansetron HCl (Zofran) 4 mg IVP Q6H PRN PRN Reason: Nausea/Vomiting Pantoprazole Sodium (Protonix) 40 mg PO 2100 [facility] Phenol (Chloraseptic [place] 180 Ml Bot) 5 ml PO QID PRN PRN Reason: Sore Throat Phenol (Chloraseptic [place] 180 Ml Bot) 0 ml PO PRN PRN PRN Reason: Sore Throat Last Admin: 05/29/17 11:56 Dose: 1 applic Simvastatin (Zocor) 40 mg PO HS [facility] Last Admin: 05/31/17 20:42 Dose: 40 mg Sodium Chloride ([place] Nasal [place] 0.65%) 0 ml EA NARE QIDPRN PRN PRN Reason: Nasal Congestion Sodium Chloride (Flush - Normal Saline) 10 ml IVF Q12HR [facility] Last Admin: 05/31/17 20:43 Dose: Not Given Sodium Chloride (Flush - Normal Saline) 10 ml IVF PRN PRN PRN Reason: Saline Flush Tamsulosin HCl (Flomax) 0.4 mg PO DAILY [facility] Last Admin: 06/01/17 08:19 Dose: 0.4 mg
--- NOTE | 2017-06-01 15:44 | DIS ---
DATE OF ADMISSION: 05/28/2017 DATE OF DISCHARGE: 06/01/2017 PRIMARY CARE PHYSICIAN: Prashant Maria M.D. DISCHARGE DISPOSITION: Home. PRIMARY DISCHARGE DIAGNOSES: 1. Partial small-bowel obstruction, resolved. 2. Urinary tract infection. 3. Acute kidney failure, improved. 4. Suspected diverticulitis. SECONDARY DISCHARGE DIAGNOSES: Hypothyroidism, gastroesophageal reflux disease, diverticulosis, dys lipidemia, and benign enlargement of prostate. PRIMARY PROCEDURE/OPERATION: None. RADIOLOGICAL INVESTIGATION: Abdomen and pelvis CT scan showed partial small-bowel obstruction, ill- defined patchy region of increased attenuation at ileocecal valve. Chest x-ray was normal. Abdomen x-ray showing partial small-bowel obstruction. Small-bowel x-ray was showing resolving small-bowel obstruction. SIGNIFICANT LABORATORY DATA: WBC 7.8, hemoglobin 16.9, and platelet 271. Sodium 140, creatinine 1. 04. LFTs normal. DISCHARGE MEDICATIONS: Cipro 500 mg p.o. b.i.d. for 7 days, Synthroid 75 mcg p.o. daily, omeprazole 40 mg p.o. daily, Zocor 40 mg p.o. at bedtime, Flomax 0.4 mg p.o. daily. CONTRAINDICATIONS: None. CODE STATUS: FULL CODE. INPATIENT ADMINISTRATIVE SERVICES ASSISTANT: Dr. Fenton was consulted while in hospital. TEST RESULT PENDING ON DISCHARGE: None. ALLERGIES: No known drug allergy. DISCHARGE PLAN: Post hospital, the patient will follow up with Dr. Prashant Maria in 1 week. The [facility] has an appointment with Dr. Josette Reed on this Tuesday and patient is advised to follow with Dr. Fenton as instructed. HOSPITAL COURSE: An 82-year-old male who was admitted by me on 05/28/2017. Please see my HPI for f urther details. The patient was admitted for nausea, vomiting, abdominal pain. Prior to that he wa s having diarrhea. In the emergency room, CT of the abdomen and pelvis showed partial small-bowel o bstruction. There was some thickening at ileocecal junction. His chest x-ray was normal. He was a dmitted to medical floor. He was treated with NG tube with low intermittent suction, IV fluid and p ain control. We monitored with serial abdominal x-ray. We also did small bowel x-ray which showed almost resolution of small-bowel obstruction. Dr. Fenton started on clear liquid diet and we advanced his diet. He was doing relatively very well today. He does not have any abdominal pain. He does not have any distention. He is passing bowel movement and he is also passing bowel gas. The patient is ambulatory. He is perfectly feeling normal and patient and patient's daughter has no reservation to go home today. On discharge, we prescribed Cipro for possible UTI and for suspected diverticulitis. This patient already going to follow up with Dr. Josette Reed on this Tuesday. This patient will need outpatient colonoscopy. The patient is seen and examined at bedside today. Please see my progress note from today for furth er details. Total time spent on discharge day more than 30 minutes.
[2017-06-01 16:02] VITALS: BP 146/80; TEMP 98
--- NOTE | 2017-06-04 12:58 | EKG ---
Test Reason : VOMITING Blood Pressure : / mmHG Vent. Rate : 096 BPM Atrial Rate : 096 BPM P-R Int : 192 ms QRS Dur : 094 ms QT Int : 352 ms P-R-T Axes : 029 021 073 degrees QTc Int : 444 ms Normal sinus rhythm Nonspecific ST and T wave abnormality Abnormal ECG Confirmed by WILLEM PHILLIPS ([id number]), legal editor ZEENAT DINERO ([id number] on 06/04/2017 12:57:36 PM Referred By: JAYMIE PHILLIPS Confirmed By:WILLEM PHILLIPS
== END 2017-06-01 16:11 | disposition home or self-care (01) | DRG 389 ==
LOC: ERS 10:44 → SURG A 16:34
PROVIDERS: ADMIT Internal Medicine; ATTEND Internal Medicine
DX: K56.609 Unspecified intestinal obstruction, unspecified as to partial versus complete obstruction (principal); N17.9 Acute kidney failure, unspecified; N39.0 Urinary tract infection, site not specified; K57.32 Diverticulitis of large intestine without perforation or abscess without bleeding; E03.9 Hypothyroidism, unspecified; N40.0 Benign prostatic hyperplasia without lower urinary tract symptoms; E78.5 Hyperlipidemia, unspecified; K21.9 Gastro-esophageal reflux disease without esophagitis
CPT/HCPCS: 36415; 71010; 74000; 74177; 74250; 80053; 81003; 81015; 82553; 83605; 83690; 84484; 85025; 87086; 93005; 96360; C9113; J0744; J1650; J2405

== ENCOUNTER 2022-10-13 12:09 | Outpatient (CLI) | payer MEDICARE, BC ==
[2022-10-13 13:27] LABS: Hemoglobin 13.8 g/dL (13.5-17.5); Mean Corpuscular HGB CONC 33.6 g/dL (32.0-36.0); Mean Corpuscular Hemoglobin 31.4 pg (27.0-33.0); Mean Corpuscular Volume 93.6 fl (81.2-95.1); Mean Platelet Volume 9.2 fl (7.4-10.4); Platelet Count 248 10x3/uL (150-450); RBC Distribution Width 12.6 % (11.5-14.5); Red Blood Cell (RBC) Count 4.39 10x6/uL (4.32-5.72); White Blood Cell (WBC) Count 4.6 10x3/uL (3.5-10.5)
[2022-10-13 13:29] LABS: PTT 24.6 sec (22.0-33.0); Prothrombin Time 10.9 sec (9.5-12.1)
[2022-10-13 13:30] LABS: Anion Gap 12 mmol/L (10-20); BUN (Urea Nitrogen) 21 mg/dL (8.4-25.7); Calc. Creatinine Clearance 0 mL/min (70-130); Calcium 9.5 mg/dL (7.8-10.44); Carbon Dioxide 29 mmol/L (23-31); Chloride 105 mmol/L (98-107); Estimated GFR 72; Glucose 87 mg/dL (83-110); Potassium 4.7 mmol/L (3.5-5.1); Sodium 141 mmol/L (136-145)
== END 2022-10-13 12:10 | disposition home or self-care (01) ==
LOC: LABBT 12:09
PROVIDERS: ATTEND Urology
DX: Z01.812 Encounter for preprocedural laboratory examination (principal); N32.89 Other specified disorders of bladder
CPT/HCPCS: 80048; 85027; 85610; 85730; 87086

== ENCOUNTER 2022-10-22 22:57 | Emergency (ER) | payer MEDICARE, BC | END 2022-10-23 01:15 | disposition home or self-care (01) | LOC: ERS 22:57 | DX: R31.9 Hematuria, unspecified (principal); T83.028A Displacement of other urinary catheter, initial encounter; E03.9 Hypothyroidism, unspecified; E78.5 Hyperlipidemia, unspecified ==